=== PATIENT | male | born 1960 | race Asian ===

== ENCOUNTER 2019-05-12 21:55 | Emergency (ER) | payer OTHER ==
[~2019-05-12] VITALS: Ht 185.4 cm; Wt 113.4 kg
[2019-05-12 22:59] LABS: POTASSIUM 4.5 mmol/L (3.6-5.2)
[2019-05-12 23:01] LABS: PLATELET COUNT 202 K/uL (142-355)
[2019-05-13 00:24] VITALS: BP 169/93; TEMP 98.1
[2019-05-13] MEDS ORDERED: ALLO300T23 PO (01:36)
[2019-05-13] MEDS ORDERED: AMMONIUM LAC12 % EX (01:38)
[2019-05-13] MEDS ORDERED: ARTIFICIAL TEAR1.4 % OTIC (01:40)
[2019-05-13] MEDS ORDERED: DIVA250T2 PO (01:41)
[2019-05-13] MEDS ORDERED: DIVA500T2 PO (01:44)
[2019-05-13] MEDS ORDERED: GENERLAC10 GM/15 M PO (01:46)
[2019-05-13] MEDS ORDERED: ESCI10TA PO (01:47)
[2019-05-13] MEDS ORDERED: ACID REDUCER20 MG PO (01:49)
[2019-05-13] MEDS ORDERED: FLUTICASON50 MCG/AC1 NAS (01:51)
[2019-05-13] MEDS ORDERED: [UNRECOGNIZED DRUG - OTHER] EX (01:52)
[2019-05-13] MEDS ORDERED: FURO40TA93 PO (01:53)
[2019-05-13] MEDS ORDERED: NEURONTIN 100M100 MG PO (01:54)
[2019-05-13] MEDS ORDERED: GABA400C2 PO (01:56)
[2019-05-13] MEDS ORDERED: HYDRALAZINE50 MG PO (01:58)
[2019-05-13] MEDS ORDERED: HYDR10TA47A PO (02:00)
[2019-05-13] MEDS ORDERED: LABETALOL300 MG PO (02:01)
[2019-05-13] MEDS ORDERED: LISI20TA11 PO (02:02)
[2019-05-13] MEDS ORDERED: MEMANTINE HCL10 MG PO (02:03)
[2019-05-13] MEDS ORDERED: CLARITIN10 MG PO (02:04)
[2019-05-13] MEDS ORDERED: PHENYTOIN EX100 MG PO ×2 (02:05→02:07)
[2019-05-13] MEDS ORDERED: PRAVACHOL80 MG PO (02:08)
[2019-05-13] MEDS ORDERED: QUET100T2 PO (02:09)
[2019-05-13] MEDS ORDERED: D31000 UNIT PO (02:11)
== END 2019-05-13 00:24 | disposition other institution (70) ==
LOC: ED 21:55
PROVIDERS: Internal Medicine
DX: Z00.8 Encounter for other general examination (principal); R46.89 Other symptoms and signs involving appearance and behavior; F03.90 Unspecified dementia, unspecified severity, without behavioral disturbance, psychotic disturbance, mood disturbance, and anxiety; F32.89 Other specified depressive episodes; Z86.73 Personal history of transient ischemic attack (TIA), and cerebral infarction without residual deficits
CPT/HCPCS: 36415; 80053; 81000; 85027; 93005; 96374; 99285; J0360

== ENCOUNTER 2019-08-07 23:34 | Emergency (ER) | payer OTHER ==
[~2019-08-07] VITALS: Ht 190.5 cm; Wt 112.0 kg
[2019-08-07 23:34] VITALS: BP 155/85; TEMP 98.1
[~2019-08-07 23:34] MED LIST: ACID REDUCER20 MG PO; ALLO300T23 PO; AMLODIPINE BESYLATE PO; AMMONIUM LAC12 % EX; ARTIFICIAL TEAR1.4 % OTIC; CLARITIN10 MG PO; D31000 UNIT PO; DIVA250T2 PO; DIVA500T2 PO; DONE5TAB PO; ESCI10TA PO; FLUTICASON50 MCG/AC1 NAS; FURO40TA93 PO; GABA400C2 PO; GENERLAC10 GM/15 M PO; HYDR10TA47A PO; HYDRALAZINE50 MG PO; LABETALOL300 MG PO; LISI20TA11 PO; MEMANTINE HCL10 MG PO; NEURONTIN 100M100 MG PO; PHENYTOIN EX100 MG PO; PRAVACHOL80 MG PO; QUET100T2 PO; [UNRECOGNIZED DRUG - OTHER] EX
[2019-08-08 00:16] LABS: PLATELET COUNT 203 K/uL (142-355)
[2019-08-08 00:21] LABS: POTASSIUM 3.9 mmol/L (3.6-5.2)
[2019-08-08] MEDS ORDERED: DONE5TAB PO (01:46)
[2019-08-08] MEDS ORDERED: HYDR10TA47 PO (02:16)
== END 2019-08-08 01:10 | disposition other institution (70) ==
LOC: ED 23:34
PROVIDERS: Family Medicine
DX: F03.91 Unspecified dementia, unspecified severity, with behavioral disturbance (principal); Z04.6 Encounter for general psychiatric examination, requested by authority
CPT/HCPCS: 36415; 80053; 81000; 85027; 93005; 99285